=== PATIENT | female | born 1960 | race Caucasian/White ===

== ENCOUNTER 2019-04-26 06:15 | Day surgery (SDC) | payer BC, SELFPAY ==
[2019-04-25 12:55] VITALS: BMI 25.7
[2019-04-26] VITALS (7 sets, daily range): BP systolic 103–126; BP diastolic 71–84; PULSE 72–81; RESP 12–18; TEMP 36.1–36.9; O2SAT 98–100; BMI 25.7
[2019-04-26] MEDS: LACTATED RINGERS 1,000 ML 100 ML IV (07:37)
[2019-04-26] MEDS: CELECOXIB 200 MG CAPSULE 400 MG PO (07:37)
--- NOTE | 2019-04-26 07:37 | PM.PREOP ---
Pre-operative Note Interval Note History & Physical reviewed/Exam performed by Physician: Yes Changes to H&P: No
[2019-04-26] MEDS: SCOPOLAMINE 1 PATCH TOP (07:38)
[2019-04-26] MEDS: GABAPENTIN 300 MG CAPSULE PO (07:38)
--- NOTE | 2019-04-26 07:38 | P.OP_ITS ---
Operative Date/Time/Diagnoses Date of procedure: 04/26/19 Time of procedure: 07:38 Pre-op diagnosis: Painful dystrophic nails on the left and right great toes Post-op diagnosis: same Procedure & Clinicians Procedure: 1. Left hallux total matrixectomy 2. Right hallux total matrixectomy Same procedure as scheduled: Yes Indications: Ongoing painful ingrown and dystrophic nails to both great toes. Surgeon: Silvia August Click Yes if Unassisted: Yes Anesthesia Type: MAC +/- and Sedation Operative Notes Closure Type: not applicable Specimen(s): none sent Estimated Blood Loss (mL): 1 Blood products transfused: none Tourniquet time (min): 10 Procedure in detail: Patient was brought to the operating room and placed on the operative table in supine position. Following induction of iv sedation, local anesthesia the above injectables were delivered to the patient. The feet were prepped and draped in the usual aseptic manner. After check of anesthesia, the L[place] drain was placed about the right hallux. The hallux nail was removed gently in total. The surrounding skin was protected with triple antibiotic ointment and a series of 4 applications of phenol at 30 sec each were placed in the area. Following each the area was curetted and after the last it was rinsed with alcohol. The pawel tourniquet was removed, a prompt hyperemic response was seen to the toe. The area was cleaned and dressed with triple antibiotic ointment, Xeroform, 4x4s, and gently placed c oban. The same procedure was performed to the right great toe at the same time. Stockinette and post operative shoes were placed on each foot. Complications: none Post-operative Condition: stable Disposition: PACU Plan for aftercare: Following a period postoperative monitoring, the patient will be discharged home on written and oral postoperative instructions including keeping the dressings dry and intact until tomorrow morning when her 1st set of soaks will begin. She has previously been given a set of home care instructions and today is also given a home dressing pack to get her started. She will perform daily dressings removals and soaks for the 1st week and I will see her in 7-10 days approximately for a recheck.
[2019-04-26] MEDS: CEFAZOLIN 2 GM/100 ML FROZ.PIGGY IV (07:43)
--- NOTE | 2019-04-26 08:07 | SUR.OPER ---
Supine on padded OR bed, head on pillow, arms secured on padded arm boards at <90 degrees abduction, legs uncrossed, safety belt at thigh, tape over blanket over lower legs.
[2019-04-26] MEDS: BUPIVACAINE 0.5% (PF) VIAL 30 ML INJ (08:14)
[2019-04-26] MEDS: LIDOCAINE 2% INJ MDV 20 ML INJ (08:17)
--- NOTE | 2019-04-26 08:22 | SUR.OPER ---
pensose used as tourniquet on toes for 10 min.total
--- NOTE | 2019-04-26 09:34 | SUR.PHASEII ---
Late entry: 0910: All discharge instructions discussed in detail with patient and her . Dr August explaining in detail instructions for wound care. V/U. Patient still denies any pain at this time. Advised patient to consider use of pain medication at home when digital block wears off. V/U. Home in stable condition with . All belongings returned.
== END 2019-04-26 09:26 | disposition home or self-care (01) ==
PROVIDERS: PCP Registered Nurse; Referring Provider Podiatrist; Visit Provider Podiatrist
PROC: 0HTRXZZ Resection of Toe Nail, External Approach (ICD-10-PCS; CPT 11750; principal; 2019-04-26 07:45)
DX: L60.3 Nail dystrophy (principal)
CPT/HCPCS: 11750 ×2; J0690; J2250; J2704